=== PATIENT | female | born 1955 | race Caucasian/White ===

== ENCOUNTER 2017-03-12 00:50 | Emergency (ER) | payer SELFPAY ==
[2017-03-12 01:00] VITALS: BP 169/95; PULSE 97; RESP 18; TEMP 98.5; O2SAT 97
[2017-03-12] MEDS ORDERED: ALBUAER3 INH (01:16)
--- NOTE | 2017-03-12 01:24 | PD ---
HPI Chief Complaint: Head Injury Time Seen by Provider: 01:07 Travel History International Travel<30 days: No Contact w/Intl Traveler<30days: No Traveled to known affect area: No History of Present Illness HPI 61-year-old female brought in by ambulance for evaluation of head injury after falling on a set of stairs while under the influence of alcohol. Patient states that she slipped and struck the back of her head on the stair. She denies LOC. She does report bleeding from the back of her head, however denies head neck or back pain. She denies upper or lower extremity pain or injuries. No chest pain or dyspnea. No abdominal pain. She believes her last tetanus was within the last year. Patient admits to drinking some alcohol tonight. She denies illicit drugs. PFS Past Medical History Asthma: Yes Diminished Hearing: No Tetanus Vaccination: Unknown Influenza Vaccination: No ?: Not Past Surgical History Appendectomy: Yes Social History Alcohol Use: Yes (OCCASIONALLY) Tobacco Use: Yes (1 PPD) Substance Use: No Allergies-Medications (Allergen,Severity, Reaction): Coded Allergies: No Known Allergies (Unverified , 03/12/17) Reported Meds & Prescriptions Reported Meds & Active Scripts Active Reported Proair Hfa 8.5 GM Inh (Albuterol Sulfate) 90 Mcg/Act Aer 2 Puff INH Q4-6H PRN 108 mcg/actuation Review of Systems Except as stated in HPI: all other systems reviewed are Neg Physical Exam Narrative GENERAL: Well-developed, well-nourished, awake, tearful, appears intoxicated, no apparent distress. SKIN: Posterior scalp with moderate size hematoma with overlying abrasion, no active bleeding. HEAD: Skin exam as above. Normocephalic. EYES: Pupils equal, round, 3 mm, reactive to light. EOMI. No scleral icterus. No injection or drainage. ENT: No nasal bleeding or discharge. Mucous membranes pink and moist. NECK: Trachea midline. No JVD. No midline cervical spine step-off or tenderness. CARDIOVASCULAR: Regular rate and rhythm. RESPIRATORY: No accessory muscle use. Clear to auscultation. Breath sounds equal bilaterally. GASTROINTESTINAL: Abdomen soft, non-tender, nondistended. MUSCULOSKELETAL: No obvious deformities. No clubbing. No cyanosis. No edema. NEUROLOGICAL: Awake and alert. No obvious cranial nerve deficits. Motor grossly within normal limits. Normal speech. PSYCHIATRIC: Appropriate mood and affect; insight and judgment normal. Data Data Last Documented VS Vital Signs Date Time Temp Pulse Resp B/P (MAP) Pulse Ox O2 Delivery O2 Flow Rate FiO2 03/12/17 06:16 94 18 131/64 (86) 97 Room Air 03/12/17 01:[address] Brain W/O Iv Contrast(Rout) (03/12/17 ) Ct Cerv Spine W/O Contrast (03/12/17 ) Complete Blood Count With Diff (03/12/17 01:43) Comprehensive Metabolic Panel (03/12/17 01:43) Iv Access Insert/Monitor (03/12/17 01:43) Ecg Monitoring (03/12/17 01:43) Oximetry (03/12/17 01:43) Sodium Chloride 0.9% Flush (Ns Flush) (03/12/17 01:45) Alcohol (Ethanol) (03/12/17 01:43) Haloperidol Inj (Haldol Inj) (03/12/17 01:45) Lorazepam Inj (Ativan Inj) (03/12/17 01:45) Restraints Violent (03/12/17 01:58) Labs Laboratory Tests Test 03/12/17 02:00 White Blood Count 12.4 TH/MM3 Red Blood Count 4.23 MIL/MM3 Hemoglobin 7.6 GM/DL Hematocrit 27.0 % Mean Corpuscular Volume 63.8 FL Mean Corpuscular Hemoglobin 18.0 PG Mean Corpuscular Hemoglobin Concent 28.2 % Red Cell Distribution Width 20.9 % Platelet Count 190 TH/MM3 Mean Platelet Volume 8.5 FL Neutrophils (%) (Auto) 28.0 % Lymphocytes (%) (Auto) 60.8 % Monocytes (%) (Auto) 8.2 % Eosinophils (%) (Auto) 2.3 % Basophils (%) (Auto) 0.7 % Neutrophils # (Auto) 3.5 TH/MM3 Lymphocytes # (Auto) 7.5 TH/MM3 Monocytes # (Auto) 1.0 TH/MM3 Eosinophils # (Auto) 0.3 TH/MM3 Basophils # (Auto) 0.1 TH/MM3 CBC Comment AUTO DIFF Differential Comment AUTO DIFF CONFIRMED Ovalocytes 1+ Blood Urea Nitrogen 6 MG/DL Creatinine 0.76 MG/DL Random Glucose 103 MG/DL Total Protein 8.5 GM/DL Albumin 3.8 GM/DL Calcium Level 8.3 MG/DL Alkaline Phosphatase 113 U/L Aspartate Amino Transf (AST/SGOT) 49 U/L Alanine Aminotransferase (ALT/SGPT) 33 U/L Total Bilirubin 0.2 MG/DL Sodium Level 138 MEQ/L Potassium Level 4.1 MEQ/L Chloride Level 105 MEQ/L Carbon Dioxide Level 21.9 MEQ/L Anion Gap 11 MEQ/L Estimat Glomerular Filtration Rate 78 ML/MIN Ethyl Alcohol Level 297 MG/DL [facility] Medical Decision Making Medical Screen Exam Complete: Yes Emergency Medical Condition: Yes Differential Diagnosis Alcohol intoxication, intracranial trauma, cervical spine injury Narrative Course The patient has been crying since she arrived in the emergency department and has been uncooperative. She has attempted to leave the emergency department several times. Despite trying to reason with her, the patient repetitively states that she wants to go home to her dog and cannot understand why we need to do any tests. She is clearly intoxicated and cannot make a sound medical decision. Despite several attempts to explain why it is important that I perform at least a CT scan to rule out an intracranial bleed, the patient refuses to understand this. Patient is a danger to herself, and because of this she was restrained both physically and chemically so that the appropriate workup can be performed. CBC is remarkable for hemoglobin 7.6, hematocrit 27, MCV 63.8, MCH 18, RDW 20.9. There is no prior CBC in our system for comparison, however this appears to be a chronic microcytic anemia. CMP is unremarkable. Alcohol level is 297. CT head: CONCLUSION: 1. Suboptimal exam degraded by motion artifact despite repeated imaging. 2. No definite hemorrhage or mass effect identified. CT cervical spine: CONCLUSION: Negative trauma CT. Patient will be allowed to sleep off her intoxication in the emergency department and once clinically sober will be allowed to go home with follow-up with her primary care physician this week. Diagnosis Primary Impression: Alcohol intoxication Qualified Codes: F10.920 - Alcohol use, unspecified with intoxication, uncomplicated Additional Impressions: Closed head injury Qualified Codes: S09.90XA - Unspecified injury of head, initial encounter Anemia Qualified Codes: D64.9 - Anemia, unspecified Referrals: Primary Care Physician 3 days Additional Instructions: Follow-up with your primary care physician this week. Return to the emergency department for worsening symptoms or any other concerns. Disposition: 01 DISCHARGE HOME Condition: Stable Kael Fitch MD Mar 12, 2017 01:24
[2017-03-12] MEDS ORDERED: SODIUM CHLORIDE 0.9% FLUSH 10 ML FLUSH IV FLUSH PRN (01:45)
[2017-03-12] MEDS ORDERED: HALOPERIDOL LACTATE 5 MG/ML AMP IM ONE (01:45)
[2017-03-12] MEDS ORDERED: LORazepam 2 MG/ML VIAL IV PUSH ONE (01:45)
[2017-03-12 02:02] VITALS: BP 165/76; PULSE 123; RESP 25; O2SAT 99
--- NOTE | 2017-03-12 03:14 | RADRPT ---
EXAM DATE/TIME: 03/12/2017 02:48 [facility] COMPARISON: No previous studies available for comparison. INDICATIONS : Fell hitting back of head. ETOH RADIATION DOSE: 30.02 CTDIvol (mGy) MEDICAL HISTORY : Asthma SURGICAL HISTORY : Appendectomy. ENCOUNTER: Initial ACUITY: 1 day PAIN SCALE: 0/10 LOCATION: cranial TECHNIQUE: Multiple contiguous axial images were obtained of the head. Using automated exposure control and adj ustment of the mA and/or kV according to patient size, radiation dose was kept as low as reasonably a chievable to obtain optimal diagnostic quality images. DICOM format image data is available electro nically for review and comparison. FINDINGS: Study is degraded by motion artifact despite repeated imaging. CEREBRUM: The ventricles are normal for age. No evidence of midline shift, mass lesion, hemorrhage or acute in farction. No extra-axial fluid collections are seen. POSTERIOR FOSSA: The cerebellum and brainstem are intact. The 4th ventricle is midline. The cerebellopontine angle i s unremarkable. EXTRACRANIAL: The visualized portion of the orbits is intact. SKULL: The calvaria is intact. No evidence of skull fracture. CONCLUSION: 1. Suboptimal exam degraded by motion artifact despite repeated imaging. 2. No definite hemorrhage or mass effect identified. Jonel Escalona MD on March 12, 2017 at 3:09 Board Certified Radiologist. This report was verified electronically.
--- NOTE | 2017-03-12 03:16 | RADRPT ---
EXAM DATE/TIME: 03/12/2017 02:48 [facility] COMPARISON: No previous studies available for comparison. INDICATIONS : Fell hitting back of head. ETOH RADIATION DOSE: 20.03 CTDIvol (mGy) MEDICAL HISTORY : Asthma SURGICAL HISTORY : Appendectomy. ENCOUNTER: Initial ACUITY: 1 day PAIN SCALE: 0/10 LOCATION: neck TECHNIQUE: Volumetric scanning of the cervical spine was performed. Multiplanar reconstructions in the sagittal, coronal and oblique axial planes were performed. Using automated exposure control and adjustment o f the mA and/or kV according to patient size, radiation dose was kept as low as reasonably achievable to obtain optimal diagnostic quality images. DICOM format image data is available electronically f or review and comparison. FINDINGS: The sagittal reconstructions demonstrate normal alignment and normal prevertebral soft tissues. The d ens is intact and there is a normal atlantoaxial relationship. Mild degenerative disc changes present at C5-6 level with mild hypertrophic change. The axial images demonstrate that the vertebral bodies and posterior elements are intact. The soft ti ssues are within normal limits. There is no evidence of acute fracture or malalignment. CONCLUSION: Negative trauma CT. Jonel Escalona MD on March 12, 2017 at 3:11 Board Certified Radiologist. This report was verified electronically.
[2017-03-12 03:23] LABS: AUTOMATED NEUTROPHIL # 3.5 TH/MM3 (1.8-7.7); BASOPHIL # 0.1 TH/MM3 (0-0.2); BASOPHIL % 0.7 % (0.0-2.0); EOSINOPHIL # 0.3 TH/MM3 (0-0.4); EOSINOPHIL % 2.3 % (0.0-4.0); LYMPH % 60.8 % (9.0-44.0); LYMPHOCYTE # 7.5 TH/MM3 (1.0-4.8); MEAN CELL VOLUME 63.8 FL (80.0-100.0); MONO % 8.2 % (0.0-8.0); PLATELET COUNT 190 TH/MM3 (150-450); RED BLOOD COUNT 4.23 MIL/MM3 (4.00-5.30); RED CELL DISTRIBUTION WIDTH 20.9 % (11.6-17.2); WHITE BLOOD COUNT 12.4 TH/MM3 (4.0-11.0)
[2017-03-12 03:28] LABS: HEMO FLAGS AUTO DIFF; MEAN CORPUSCULAR HGB CONC 28.2 % (32.0-36.0)
[2017-03-12 03:41] LABS: ANION GAP 11 MEQ/L (5-15); AST (GOT) 49 U/L (15-37); BICARBONATE 21.9 MEQ/L (21.0-32.0); BLOOD UREA NITROGEN 6 MG/DL (7-18); CHLORIDE 105 MEQ/L (98-107); GLOMERULAR FILTRATION RATE 78 ML/MIN (>89); POTASSIUM 4.1 MEQ/L (3.5-5.1); SODIUM (NA) 138 MEQ/L (136-145)
[2017-03-12 03:44] VITALS: BP 137/76; PULSE 107; RESP 20; O2SAT 96
[2017-03-12 03:44] LABS: ALKALINE PHOSPHATASE 113 U/L (45-117); ALT (GPT) 33 U/L (10-53); TOTAL BILIRUBIN ADULT 0.2 MG/DL (0.2-1.0)
[2017-03-12 03:49] LABS: ALCOHOL 297 MG/DL (0-5)
[2017-03-12 04:44] LABS: OVALOCYTES 1+ (NORMAL); SCAN/DIFF AUTO DIFF CONFIRMED
[2017-03-12 06:16] VITALS: BP 131/64; PULSE 94; RESP 18; O2SAT 97
[2017-03-12 13:11] VITALS: BP 133/72
== END 2017-03-12 14:19 | disposition home or self-care (01) ==
LOC: NEPE 00:50
DX: F10.129 Alcohol abuse with intoxication, unspecified (principal); S09.90XA Unspecified injury of head, initial encounter; D64.9 Anemia, unspecified; J45.909 Unspecified asthma, uncomplicated; F17.200 Nicotine dependence, unspecified, uncomplicated; W10.9XXA Fall (on) (from) unspecified stairs and steps, initial encounter
CPT/HCPCS: 70450; 72125; 80053; 80307; 85025; 96372; 96374; 99285; J1630; J2060